=== PATIENT | male | born 1965 | race Caucasian/White ===

== ENCOUNTER 2020-11-16 22:22 | Emergency (ER) | payer BC, OTHER ==
[2020-11-16 22:35] VITALS: BP 124/69; PULSE 84
[2020-11-16] MEDS ORDERED: Sodium Chloride 0.9% 10 ML Syringe FLUSH PRN (22:44)
[2020-11-16] MEDS ORDERED: Sodium Chloride 0.9% 1,000 ML IV SCH (22:45)
--- NOTE | 2020-11-16 23:28 | EDM.PDOC ---
ED HPI GENERAL MEDICAL PROBLEM - General Chief Complaint: Cardiovascular Problem Stated Complaint: DIZZINESS/POSS DEHYDRATION Time Seen by Provider: 11/16/20 22:33 Source of Information: Reports: Patient History Limitations: Reports: No Limitations - History of Present Illness INITIAL COMMENTS - FREE TEXT/NARRATIVE: The patient presents with generalized weakness, dizziness like he is going to pass out and vomiting. He has been shingling his roof. He has been drinking water and gatorade. He thinks he may have heat stroke. He feels warm and cold. He was nauseated and vomited once. He does not feel nauseated anymore. He has no headache, chest pain, shortness of breath, or abdominal pain. He has no medical problems that he knows of. Onset: Gradual Duration: Hour(s): Improves with: Reports: None Worsens with: Reports: None Associated Symptoms: Reports: Fever/Chills, Nausea/Vomiting. Denies: Chest Pain, Cough, Headaches, Shortness of Breath - Related Data Allergies Allergy/AdvReac Type Severity Reaction Status Date / Time No Known Allergies Allergy Verified 11/16/20 22:32 Home Meds: Home Meds . [No Known Home Meds] 11/16/20 [History] Past Medical History HEENT History: Reports: Impaired Vision Cardiovascular History: Reports: Other (See Below) Other Cardiovascular History: Pt states he has been told nothing is wrong with his heart "but there is" states has worn a holter monitor and it showed runs of "ventricule tachicardia" Respiratory History: Reports: None Gastrointestinal History: Reports: None Genitourinary History: Reports: None Neurological History: Reports: None Psychiatric History: Reports: None Endocrine/Metabolic History: Reports: None Hematologic History: Reports: None Immunologic History: Reports: None Oncologic (Cancer) History: Reports: None Dermatologic History: Reports: None - Infectious Disease History Infectious Disease History: Reports: Chicken Pox - Past Surgical History HEENT Surgical History: Reports: Oral Surgery Musculoskeletal Surgical History: Reports: Knee Replacement, Other (See Below) Other Musculoskeletal Surgeries/Procedures:: surgery to RFA Social & Family History - Family History Family Medical History: No Pertinent Family History Cardiac: Reports: CAD - Tobacco Use Tobacco Use Status *Q: Never Tobacco User - Caffeine Use Caffeine Use: Reports: Coffee, Energy Drinks, Soda, Tea - Recreational Drug Use Recreational Drug Use: No ED ROS GENERAL - Review of Systems Review Of Systems: See Below Constitutional: Reports: Fever, Chills, Weakness, Fatigue HEENT: Reports: No Symptoms Respiratory: Reports: No Symptoms Cardiovascular: Reports: No Symptoms Endocrine: Reports: Fatigue GI/Abdominal: Reports: Nausea, Vomiting. Denies: Abdominal Pain, Diarrhea : Reports: No Symptoms Musculoskeletal: Reports: No Symptoms Skin: Reports: No Symptoms ED EXAM, GENERAL - Physical Exam Exam: See Below Exam Limited By: No Limitations General Appearance: Alert, No Apparent Distress Ears: Normal External Exam Nose: Normal Inspection Head: Atraumatic, Normocephalic Neck: Normal Inspection Respiratory/Chest: No Respiratory Distress, Lungs Clear, Normal Breath Sounds Cardiovascular: Regular Rate, Rhythm, No Edema, No Murmur GI/Abdominal: Soft, Non-Tender, No Organomegaly, No Mass Back Exam: Normal Inspection Extremities: Normal Inspection #1 Interpretation EKG Date: 11/16/20 Time: 10:58 Rhythm: NSR Rate (Beats/Min): 77 [place]: LAD-Left [place] Deviation P-Wave: Present QRS: Normal ST-T: Normal QT: Normal Course - Vital Signs Last Recorded V/S: Last Vital Signs Temp 98.6 F 11/16/20 22:34 Pulse 84 11/16/20 22:34 Resp 18 11/16/20 22:34 BP 124/69 11/16/20 22:34 Pulse Ox 95 11/16/20 22:34 - Orders/Labs/Meds Orders: Active Orders 24 hr Category Date Time Status Cardiac Monitoring [RC] . DIRECTED Care 11/16/20 22:44 Active EKG Documentation Completion [RC] STAT Care 11/16/20 22:45 Active Peripheral IV Care [RC] . DIRECTED Care 11/16/20 22:45 Active Sodium Chloride 0.9% [Normal Saline] 1,000 ml Med 11/16/20 22:45 Active IV .BOLUS Sodium Chloride 0.9% [Saline Flush] Med 11/16/20 22:44 Active 10 ml FLUSH ASDIRECTED PRN Peripheral IV Insertion Adult [OM.PC] Stat Oth 11/16/20 22:44 Ordered Medication Orders Sodium Chloride (Normal Saline) 1,000 mls @ 1,000 mls/hr IV .BOLUS GAGE Last Admin: 11/16/20 22:53 Dose: 1,000 mls/hr Documented by: PARDEEP Sodium Chloride (Sodium Chloride 0.9% 10 Ml Syringe) 10 ml FLUSH ASDIRECTED PRN PRN Reason: Keep Vein Open Last Admin: 11/16/20 22:53 Dose: 10 ml Documented by: PARDEEP Labs: Laboratory Tests 11/16/20 11/16/20 Range/Units 22:53 22:53 WBC 9.87 H (4.23-9.07) K/mm3 RBC 4.48 L (4.63-6.08) M/mm3 Hgb 14.3 (13.7-17.5) gm/dl Hct 41.7 (40.1-51.0) % MCV 93.1 H (79.0-92.2) fl MCH 31.9 (25.7-32.2) pg MCHC 34.3 (32.2-35.5) g/dl RDW Std Deviation 44.0 H (35.1-43.9) fL Plt Count 151 L (163-337) K/mm3 MPV 11.1 (9.4-12.3) fl Neut % (Auto) 83.2 H (34.0-67.9) % Lymph % (Auto) 9.3 L (21.8-53.1) % Lares % (Auto) 6.7 (5.3-12.2) % Eos % (Auto) 0.5 L (0.8-7.0) Baso % (Auto) 0.2 (0.1-1.2) % Neut # (Auto) 8.21 H (1.78-5.38) K/mm3 Lymph # (Auto) 0.92 L (1.32-3.57) K/mm3 Lares # (Auto) 0.66 (0.30-0.82) K/mm3 Eos # (Auto) 0.05 (0.04-0.54) K/mm3 Baso # (Auto) 0.02 (0.01-0.08) K/mm3 Manual Slide Review [employer] Advisor Sodium 134 L (136-145) mEq/L Potassium 3.6 (3.5-5.1) mEq/L Chloride 100 (98-107) mEq/L Carbon Dioxide 21 (21-32) mEq/L Anion Gap 16.6 H (5-15) BUN 13 (7-18) mg/dL Creatinine 1.3 (0.7-1.3) mg/dL Est Cr Clr Drug Dosing 72.13 mL/min Estimated GFR (MDRD) 58 (>60) mL/min BUN/Creatinine Ratio 10.0 L (14-18) Glucose 108 H (70-99) mg/dL Calcium 8.1 L (8.5-10.1) mg/dL Magnesium 1.8 (1.8-2.4) mg/dL Total Bilirubin 0.8 (0.2-1.0) mg/dL AST 17 (15-37) U/L ALT 20 (16-63) U/L Alkaline Phosphatase 66 (46-116) U/L Troponin I < 0.017 (0.00-0.056) ng/mL Total Protein 7.3 (6.4-8.2) g/dl Albumin 3.5 (3.4-5.0) g/dl Globulin 3.8 gm/dL Albumin/Globulin Ratio 0.9 L (1-2) Meds: Medications Generic Name Dose Route Start Last Admin Trade Name Freq PRN Reason Stop Dose Admin Sodium Chloride 1,000 mls @ 1,000 mls/hr 11/16/20 22:45 11/16/20 22:53 Normal Saline IV 1,000 mls/hr .BOLUS GAGE Administration Sodium Chloride 10 ml 11/16/20 22:44 11/16/20 22:53 Sodium Chloride 0.9% 10 Ml Syringe FLUSH 10 ml ASDIRECTED PRN Administration Keep Vein Open - Re-Assessments/Exams Free Text/Narrative Re-Assessment/Exam: 11/16/20 23:27 I ordered an IV NS 1L bolus, EKG, and labs. His EKG shows a NSR with no acute changes. 11/16/20 23:40 His WBC was slightly elevated at 9.87. His platelets were a little low at 151. His anion gap was elevated at 16.6. His calcium was low at 8.1. His troponin is negative. His magnesium is normal. I do feel he has heat exhaustion. Departure - Departure Time of Disposition: 23:45 Disposition: Home, Self-Care 01 Condition: Good Clinical Impression: Heat exhaustion Qualifiers: Encounter type: initial encounter Qualified Code(s): T67.5XXA - Heat exhaustion, unspecified, initial encounter Referrals: PCP,None [Primary Care Provider] - Sandra Stein MD [Physician] - 1 Week Forms: ED Department Discharge, ED Return to Work/School Form Additional Instructions: Drink plenty of fluids. Rest for the next couple days. Please return if you are worse. Sepsis Event Note (ED) - Evaluation Sepsis Screening Result: No Definite Risk - Focused Exam Vital Signs: Vital Signs Temp Pulse Resp BP Pulse Ox 11/16/20 22:34 98.6 F 84 18 124/69 95 - My Orders Last 24 Hours: My Active Orders 11/16/20 22:44 Cardiac Monitoring [RC] . DIRECTED Sodium Chloride 0.9% [Saline Flush] 10 ml FLUSH ASDIRECTED PRN Peripheral IV Insertion Adult [OM.PC] Stat 11/16/20 22:45 EKG Documentation Completion [RC] STAT Peripheral IV Care [RC] . DIRECTED Sodium Chloride 0.9% [Normal Saline] 1,000 ml IV .BOLUS - Assessment/Plan Last 24 Hours: My Active Orders 11/16/20 22:44 Cardiac Monitoring [RC] . DIRECTED Sodium Chloride 0.9% [Saline Flush] 10 ml FLUSH ASDIRECTED PRN Peripheral IV Insertion Adult [OM.PC] Stat 11/16/20 22:45 EKG Documentation Completion [RC] STAT Peripheral IV Care [RC] . DIRECTED Sodium Chloride 0.9% [Normal Saline] 1,000 ml IV .BOLUS
== END 2020-11-16 23:53 | disposition home or self-care (01) ==
LOC: JD.ED 22:22
DX: T67.5XXA Heat exhaustion, unspecified, initial encounter (principal)
CPT/HCPCS: 36415; 80053; 83735; 84484; 85025; 93005; 99284; J7030

== ENCOUNTER 2025-05-17 21:19 | Emergency (ER) | payer BC ==
[2025-05-17 21:30] VITALS: PULSE 61
[2025-05-17] MEDS ORDERED: Sodium Chloride 0.9% 10 ML Syringe FLUSH PRN (21:59)
[2025-05-17 22:05] LABS: BASOPHILS ABSOLUTE AUTO 0.0 K/mm3 (0.0-0.2); BASOPHILS PERCENT AUTO 0.5 % (0.0-1.0); EOSINOPHILS ABSOLUTE AUTO 0.2 K/mm3 (0.0-0.4); EOSINOPHILS PERCENT AUTO 2.9 % (0.0-6.0); IMMATURE GRAN ABSOLUTE AUTO 0.01 K/mm3 (0.00-0.05); IMMATURE GRAN PERCENT AUTO 0.1 % (0.0-0.4); LYMPHOCYTES ABSOLUTE AUTO 2.0 K/mm3 (1.0-4.8); LYMPHOCYTES PERCENT AUTO 26.2 % (24.0-44.0); MEAN PLATELET VOLUME 11.6 fl (9.4-12.4); MONOCYTES ABSOLUTE AUTO 0.6 K/mm3 (0.0-0.8); MONOCYTES PERCENT AUTO 7.8 % (0.0-8.0); NEUTROPHILS ABSOLUTE AUTO 4.8 K/mm3 (1.8-7.7); NEUTROPHILS PERCENT AUTO 62.5 % (41.0-71.0); NRBC ABSOLUTE 0.00 (0.00-0.02); NRBC PERCENT 0.0 % (0.0-0.2); PLATELET COUNT,PLT 212 K/mm3 (150-400); RED BLOOD CELL COUNT 4.95 M/mm3 (4.52-5.90); WHITE BLOOD CELL COUNT,WBC 7.70 K/mm3 (3.9-11.3)
[2025-05-17] MEDS ORDERED: Naloxone 0.4 MG/ML SDV IVPUSH PRN ×2 (22:05→22:39)
[2025-05-17 22:22] LABS: A/G RATIO 0.9 (1-2); ALANINE AMINOTRANSFERASE,ALT 26.0 U/L (16-63); ASPARTATE AMNIOTRANSFERASE,AST 24.0 U/L (15-37); BILIRUBIN TOTAL 0.7 mg/dL (0.2-1.0); BLOOD UREA NITROGEN,BUN 16.0 mg/dL (7-18); CARBON DIOXIDE,CO2 26.0 mEq/L (21-32); CHLORIDE,CL 102.0 mEq/L (98-107); CREATININE 1.1 mg/dL (0.7-1.3); EST CRCL DRUG DOSING (CG) 80.34 mL/min; ESTIMATED GFR 78.0 mL/min (>60); GLUCOSE RANDOM 116.0 mg/dL (70-99); POTASSIUM,K 3.7 mEq/L (3.5-5.1); PROTEIN TOTAL,TP 7.8 g/dl (6.4-8.2); SODIUM,NA 138.0 mEq/L (136-145); TROPONIN I HIGH SENSITIVITY 5.0 pg/mL (<=76)
[2025-05-17 22:24] LABS: LACTIC ACID 1.3 mmol/L (0.4-2.0)
[2025-05-17] MEDS: Iopamidol 612 MG/ML 30 ML SDV IVPUSH ONE (22:34)
[2025-05-17] MEDS: Ondansetron 4 MG/2 ML SDV IVPUSH ONE (22:46)
[2025-05-17 23:46] LABS: APPEARANCE,URINE CLEAR (Clear); GLUCOSE,URINE NEGATIVE (Negative); OCCULT BLOOD,URINE NEGATIVE (Negative)
[2025-05-18] MEDS: Alum Hydrox/Mag Hydrox/Simeth 30 ML, Lidocaine 2% 15 ML PO ONE (00:12)
[2025-05-18] MEDS ORDERED: Diatrizoate Meglumine/Diatrizoate Sodium 37% 120 ML Bottle PO ONE (00:13)
[2025-05-18] MEDS ORDERED: Naloxone 0.4 MG/ML SDV IVPUSH PRN (00:25)
[2025-05-18 01:19] VITALS: BP 124/80
== END 2025-05-18 01:04 | disposition home or self-care (01) ==
LOC: JD.ED 21:19
DX: K52.9 Noninfective gastroenteritis and colitis, unspecified (principal)
CPT/HCPCS: 36415; 74177; 80053; 81003; 83605; 83690; 83735; 84484; 85025; 93005; 96361; 96374; 96375; 96376; 99284; J2270; J2405; J3490; J7030; Q9963; Q9967; 93010; A9270-GY